=== PATIENT | female | born 1965 | race Caucasian/White ===

== ENCOUNTER 2019-10-24 12:02 | Emergency (ER) | payer OTHER ==
[~2019-10-24] VITALS: Ht 172.7 cm; Wt 99.8 kg
[2019-10-24 13:17] VITALS: BP 149/103
== END 2019-10-24 13:18 | disposition home or self-care (01) ==
LOC: M.ERS 12:02
DX: R04.0 Epistaxis (principal); Z90.710 Acquired absence of both cervix and uterus; Z90.49 Acquired absence of other specified parts of digestive tract